=== PATIENT | female | born 1965 | race Two or more races ===

== ENCOUNTER 2018-03-27 10:18 | Outpatient (CLI) | payer OTHER ==
[2018-03-27 11:02] LABS: BASOPHILS # (AUTO) 0.1 K/uL (0.0-8.0); EOSINOPHILS # (AUTO) 0.1 K/uL (0.0-0.7); EOSINOPHILS % (AUTO) 1.1 % (0.0-7.0); HEMATOCRIT 40.8 % (31.2-41.9); HEMOGLOBIN 13.7 g/dL (10.9-14.3); LYMPHOCYTES # (AUTO) 2.3 K/uL (20.0-40.0); MEAN CORPUSCULAR HGB CONC 34 g/dL (32.3-35.6); MEAN CORPUSCULAR VOLUME 92.7 fL (75.5-95.3); MONOCYTES # (AUTO) 0.7 K/uL (2.0-10.0); MONOCYTES % (AUTO) 11.5 % (0.0-11.0); NEUTROPHILS % (AUTO) 48.4 % (38.5-71.5); PLATELET COUNT (AUTO) 230 K/uL (179-408); WHITE BLOOD COUNT (AUTO) 6.2 K/uL (3.8-11.8)
[2018-03-27 11:05] LABS: *BILIRUBIN,URIN NEGATIVE (NEGATIVE); *BLOOD, URINE Trace-intact (NEGATIVE); *CLARITY,URINE CLEAR (CLEAR); *COLOR,URINE YELLOW (YELLOW); *KETONES,URINE NEGATIVE (NEGATIVE); *UROBILINOGEN,URINE 0.2 E.U./dl (NORMAL); LEUKOCYTE ESTERASE ,URINE NEGATIVE (NEGATIVE); NITRITE, URINE NEGATIVE (NEGATIVE); PH,URINE 6.5 (5.0-8.0); UGLUCOSE NEGATIVE (NEGATIVE)
[2018-03-27 11:10] LABS: CREATININE 0.7 mg/dL (0.6-1.3); POTASSIUM 3.7 mmol/L (3.5-5.1)
[2018-03-27 11:16] LABS: BILIRUBIN,TOTAL 0.4 mg/dL (0.2-1.0); TOTAL PROTEIN, SERUM 7.7 g/dL (6.4-8.2)
[2018-03-27 11:31] LABS: SQUAMOUS EPITHELIAL CELL,UR FEW /HPF (NONE SEEN)
[2018-03-27 11:32] LABS: BACTERIA,URINE NONE SEEN /HPF (NONE SEEN); WBC,URINE 0-3 /HPF (0-3)
== END 2018-03-27 23:59 | disposition home or self-care (01) ==
LOC: RAD 10:18
PROVIDERS: ATTEND Internal Medicine
DX: Z01.818 Encounter for other preprocedural examination (principal); M75.42 Impingement syndrome of left shoulder
CPT/HCPCS: 36415; 71045; 85025; 85730; 93005; A4663

== ENCOUNTER 2018-03-30 06:28 | Day surgery (SDC) | payer OTHER ==
[2018-03-30] MEDS ORDERED: IV NORMAL SALINE 1000 ML BAG IV ONE (06:29)
[2018-03-30] MEDS ORDERED: diphenhydrAMINE 50 MG/1 ML VIAL MC ONE (06:29)
[2018-03-30] MEDS ORDERED: LIDOCAINE HCL 1% 20 ML VIAL MC ONE (06:29)
[2018-03-30] MEDS ORDERED: ONDANSETRON 4 MG/2 ML VIAL IV ONE (06:29)
[2018-03-30] MEDS ORDERED: DEXAMETHASONE SOD PHOSPHATE 4 MG INJ IV ONE (06:29)
[2018-03-30] MEDS ORDERED: CEFAZOLIN 1 G VIAL MC ONE (06:29)
[2018-03-30] MEDS ORDERED: BUPIVACAINE/EPI PF 0.25% 30 ML VIAL IJ ONE (06:29)
[2018-03-30] MEDS ORDERED: PROPOFOL 200 MG/20 ML BOTTLE IV ONE (06:29)
[2018-03-30] MEDS ORDERED: BUPIVACAINE/EPI PF 0.5% 10 ML VIAL ONE ×2 (07:16→07:48)
[2018-03-30] MEDS ORDERED: POLYMYXIN B SULFATE 500,000 UNITS, BACITRACIN 50,000 UNITS, NORMAL SALINE 20 ML MC ONE ×3 (07:30)
[2018-03-30] MEDS ORDERED: MIDAZOLAM HCL 2 MG/2 ML VIAL ONE (08:07)
[2018-03-30] MEDS ORDERED: HYDROMORPHONE 2 MG/1 ML DISP.SYRIN ONE (08:07)
[2018-03-30] MEDS ORDERED: FENTANYL CITRATE 100 MCG/2 ML AMPUL ONE (08:08)
[2018-03-30] MEDS ORDERED: BUPIVACAINE 0.25% 30 ML VIAL ONE (08:09)
[2018-03-30] MEDS ORDERED: ROCURONIUM BROMIDE 50 MG/5 ML VIAL ONE (08:10)
[2018-03-30] MEDS ORDERED: SEVOFLURANE 250 ML BOTTLE ONE (08:32)
== END 2018-03-30 12:50 | disposition home or self-care (01) ==
LOC: DS 06:28
PROVIDERS: ATTEND Orthopaedic Surgery
DX: M75.102 Unspecified rotator cuff tear or rupture of left shoulder, not specified as traumatic (principal); M75.42 Impingement syndrome of left shoulder; Z98.890 Other specified postprocedural states; Z82.49 Family history of ischemic heart disease and other diseases of the circulatory system; E03.9 Hypothyroidism, unspecified; J45.909 Unspecified asthma, uncomplicated; G89.29 Other chronic pain; E66.01 Morbid (severe) obesity due to excess calories; Z79.899 Other long term (current) drug therapy
CPT/HCPCS: 23120; 23130; 23412; 82962; 88304; 88305; 88311; J0690; J1100; J1170; J1200; J2250; J2405; J3010; J3490 ×7; A4565; A4649; J7030